=== PATIENT | male | born 1965 | race Caucasian/White ===

== ENCOUNTER 2019-01-19 16:14 | Emergency (ER) | payer SELFPAY ==
[~2019-01-19] VITALS: Ht 180.3 cm; Wt 104.3 kg
[2019-01-19 16:27] VITALS: BP 195/145
[2019-01-19 17:39] VITALS: BP 165/100
== END 2019-01-19 17:39 | disposition home or self-care (01) ==
LOC: MED 16:14
DX: S60.552A Superficial foreign body of left hand, initial encounter (principal); I10 Essential (primary) hypertension; Z88.0 Allergy status to penicillin; Z98.890 Other specified postprocedural states; W45.8XXA Other foreign body or object entering through skin, initial encounter; Y93.89 Activity, other specified; Y92.89 Other specified places as the place of occurrence of the external cause; Y99.8 Other external cause status
CPT/HCPCS: 73130; 99283; Q0092